=== PATIENT | male | born 1965 | race Two or more races ===

== ENCOUNTER 2017-04-09 14:54 | Emergency (ER) | payer BC, OTHER ==
[~2017-04-09] VITALS: Ht 172.7 cm; Wt 79.0 kg
[2017-04-09] MEDS ORDERED: SODIUM CHLORIDE 0.9% 1,000 ML IV ONE (15:21)
[2017-04-09] MEDS ORDERED: ASPIRIN 81 MG TABLET CHEW PO ONE (15:30)
[2017-04-09] MEDS ORDERED: NITROGLYCERIN SINGLE TAB 0.4 MG SL PRN (15:30)
[2017-04-09] MEDS ORDERED: SODIUM CHLORIDE FLUSH 10ML SYR IVF ONE (15:30)
[2017-04-09 16:04] LABS: HEMATOCRIT 46.2 % (39.2-51.8); HEMOGLOBIN 15.7 g/dL (13.7-18.0); WHITE BLOOD COUNT 7.1 x10^3/uL (3.4-10)
[2017-04-09 16:18] LABS: BLOOD UREA NITROGEN 20 mg/dL (7-18)
[2017-04-09 16:23] LABS: IS PT STATUS REG ER OR PRE ER? YES
[2017-04-09 17:35] VITALS: BP 136/96
== END 2017-04-09 17:36 | disposition home or self-care (01) ==
LOC: ED 17:04
DX: R07.2 Precordial pain (principal); I10 Essential (primary) hypertension; Z79.82 Long term (current) use of aspirin
CPT/HCPCS: 36415; 71010; 80048; 82040; 84484; 85025; 93005; 99285

== ENCOUNTER → 2017-04-14 | Outpatient (CLI) | payer OTHER | END | disposition home or self-care (01) | LOC: CFH 08:34 | PROVIDERS: ATTEND Internal Medicine Cardiovascular Disease | DX: I08.1 Rheumatic disorders of both mitral and tricuspid valves (principal); I10 Essential (primary) hypertension | CPT/HCPCS: 93306 ==

== ENCOUNTER → 2017-04-15 | Outpatient (CLI) | payer OTHER | END | disposition home or self-care (01) | LOC: RAD 13:12 | PROVIDERS: ATTEND Internal Medicine Cardiovascular Disease | DX: I10 Essential (primary) hypertension (principal); R07.89 Other chest pain | CPT/HCPCS: 78452; 93017; A9502 ==

== ENCOUNTER 2020-04-26 22:31 | Emergency (ER) | payer OTHER ==
[~2020-04-26] VITALS: Ht 170.2 cm; Wt 75.8 kg
[2020-04-26] MEDS ORDERED: LIDOCAINE-MPF 1%, 5ML ONE (22:43)
[2020-04-26] MEDS ORDERED: ONDANSETRON 2MG/ML, 2ML ONE (22:49)
[2020-04-26] MEDS ORDERED: MORPHINE SULFATE 4 MG/ML, 1ML ONE ×2 (22:50→23:14)
[2020-04-26] MEDS ORDERED: DIPH,PERTUSS(ACELL),TET VAC/PF 0.5 ML IM-VACC ONE ×2 (22:50→23:00)
[2020-04-26] MEDS ORDERED: ONDANSETRON 2MG/ML, 2ML IVPush ONE (23:00)
[2020-04-26] MEDS ORDERED: CEFAZOLIN PMX 1GM/50ML 50 ML IVPB ONE (23:00)
--- NOTE | 2020-04-26 23:00 | NUR ---
pt walked back to room, on o2 sat monitor. towel wrapped around hand. bleeding controlled.
--- NOTE | 2020-04-26 23:00 | NUR ---
pt a&ox4, no distress at this time. MD to bedside to eval pt. piv started to right hand 18g, x1 attempt, taped and secured, flushed, no swelling, redness. no pain per pt. pain meds given, and dpt immunization updated.
[2020-04-26] MEDS: MORPHINE SULFATE 4 MG/ML, 1ML IV PRN ×2 (23:02→23:19)
[2020-04-26] MEDS ORDERED: CEFAZOLIN PMX 1GM/50ML 50 ML ONE (23:14)
--- NOTE | 2020-04-26 23:20 | NUR ---
first pain med dose did not take the pain away. pt on cr monitor. airway intact, good aeration and oxygenation.
--- NOTE | 2020-04-26 23:20 | NUR ---
2nd dose of pain meds given iv, pt tolerating well. family at bedside. antibiotics started iv, tetanus shot given, and all documented.
--- NOTE | 2020-04-26 23:21 | NUR ---
1 liter NS started for lower BP, 98/57, per MD verbal order. to be written.
[2020-04-26] MEDS ORDERED: SODIUM CHLORIDE FLUSH 10ML SYR IVF ONE (23:30)
[2020-04-26] MEDS ORDERED: SODIUM CHLORIDE 0.9% 1,000ML IVBOLUS ONE (23:30)
--- NOTE | 2020-04-26 23:33 | NUR ---
2nd piv to start on affected L hand.
[2020-04-27] MEDS ORDERED: LIDOCAINE/PF 0.5% ,50ML INFIL ONE
--- NOTE | 2020-04-27 01:10 | NUR ---
and tech to bedside. left hand lac irrigated with 2 Liter of NS, after lido block placed via PIV. blood pressure cuff x2 placed left arm for block. good pulse noted, and blanket folder <2 sec. pt awake and alert and no complaint of pain at this time. cr monitor on.
--- NOTE | 2020-04-27 01:38 | NUR ---
left hand lac sutured by PA, tolerated well, no pain, no more bleeding, wound cleansed with NS and bandaged and splint placed for comfort. pt tolerated well. call light at bedside and remains on cr monitor, and siderails up x2
--- NOTE | 2020-04-27 02:07 | NUR ---
First contact for dispo. Pt and family given rx, instruct and extra bandaids. Pt and family verbalize understanding of dc, when to return, f/u. VSS, IV dc cath intact.
[2020-04-27 02:08] VITALS: BP 135/74
[2020-04-27] MEDS ORDERED: ONDANSETRON ODT 4 MG ONE (02:17)
== END 2020-04-27 02:11 | disposition home or self-care (01) ==
LOC: ED 04-27 02:00
DX: S61.012A Laceration without foreign body of left thumb without damage to nail, initial encounter (principal); S61.211A Laceration without foreign body of left index finger without damage to nail, initial encounter; S61.213A Laceration without foreign body of left middle finger without damage to nail, initial encounter; S61.215A Laceration without foreign body of left ring finger without damage to nail, initial encounter; S61.217A Laceration without foreign body of left little finger without damage to nail, initial encounter; M79.642 Pain in left hand; I10 Essential (primary) hypertension; X58.XXXA Exposure to other specified factors, initial encounter; Y93.89 Activity, other specified; Y92.009 Unspecified place in unspecified non-institutional (private) residence as the place of occurrence of the external cause; Y99.8 Other external cause status
CPT/HCPCS: 12044; 73130; 90471; 90715; 96365; 96375; 99285; J0690; J2001; J2270; J2405; J7030

== ENCOUNTER → 2020-04-29 | Outpatient (CLI) | payer OTHER | END | disposition home or self-care (01) | LOC: STAR 08:00 → EDSTATUS 05-07 15:30 | PROVIDERS: ATTEND Orthopaedic Surgery | DX: Z20.828 Contact with and (suspected) exposure to other viral communicable diseases (principal); S61.412A Laceration without foreign body of left hand, initial encounter; X58.XXXA Exposure to other specified factors, initial encounter; Y92.89 Other specified places as the place of occurrence of the external cause; Y93.89 Activity, other specified; Y99.8 Other external cause status | CPT/HCPCS: 87635 ==

== ENCOUNTER 2020-05-07 14:48 | Day surgery (SDC) | payer OTHER ==
[~2020-05-07] VITALS: Ht 172.7 cm; Wt 72.0 kg
[2020-05-07] MEDS ORDERED: BUPIVACAINE/PF 0.5% ONE ×2 (15:04→16:03)
[2020-05-07] MEDS ORDERED: AMLO5TAB4 PO (15:10)
[2020-05-07] MEDS ORDERED: ACETAMINOPHEN 500 MG TABLET ONE (15:17)
[2020-05-07] MEDS ORDERED: CHLORHEXIDINE 15 ML UDC MM ONE (15:30)
[2020-05-07] MEDS ORDERED: LACTATED RINGERS 1,000 ML IV SCH (15:30)
[2020-05-07] MEDS ORDERED: ACETAMINOPHEN 500 MG TABLET PO ONE (15:30)
[2020-05-07 15:43] VITALS: BP 155/100
[2020-05-07] MEDS ORDERED: FENTANYL PF 250 MCG/5ML ONE (15:58)
[2020-05-07] MEDS ORDERED: OXYcodone 5 MG/5 ML ORAL.SOL UDC PO PRN ×2 (16:00→18:00)
[2020-05-07] MEDS ORDERED: hydrALAzine 20 MG/ML, 1ML IV PRN ×2 (16:00→18:00)
[2020-05-07] MEDS ORDERED: PROMETHAZINE 25 MG/ML, 1ML IVPush PRN ×2 (16:00→18:00)
[2020-05-07] MEDS ORDERED: LABETALOL 5MG/ML, 20ML IV PRN ×2 (16:00→18:00)
[2020-05-07] MEDS ORDERED: ONDANSETRON 2MG/ML, 2ML IVPush PRN ×2 (16:00→18:00)
[2020-05-07] MEDS ORDERED: EPHEDRINE 50 MG/ML, 1ML IVPush PRN ×2 (16:00→18:00)
[2020-05-07] MEDS ORDERED: MIDAZOLAM 1 MG/ML, 2ML ONE (16:03)
[2020-05-07] MEDS ORDERED: EPINEPHRINE 1 MG/ML, 1ML ONE (16:03)
[2020-05-07] MEDS ORDERED: DEXAMETHASONE 4 MG/ML, 1ML ONE (16:11)
[2020-05-07] MEDS ORDERED: PROPOFOL 10 MG/ML, 20ML ONE (16:11)
[2020-05-07] MEDS ORDERED: ONDANSETRON 2MG/ML, 2ML ONE (16:11)
[2020-05-07] MEDS ORDERED: CEFAZOLIN 1,000 MG ONE (16:11)
[2020-05-07] MEDS ORDERED: HALOPERIDOL 5 MG/ML IV PRN (18:00)
[2020-05-07] MEDS ORDERED: EPHEDRINE 50 MG/ML, 1ML IM PRN (18:00)
[2020-05-07] MEDS ORDERED: HYDROmorphone 1 MG/ML, 1ML INJ IVPush PRN (18:00)
[2020-05-07] MEDS ORDERED: FENTANYL PF 100 MCG/2ML IV PRN (18:00)
[2020-05-07] MEDS ORDERED: METHOCARBAMOL 1,000 MG in DEXTROSE 5% 100 ML IV PRN (18:00)
[2020-05-07] MEDS ORDERED: MEPERIDINE/PF 25MG/0.5ML IVPush PRN (18:00)
[2020-05-07] MEDS ORDERED: LORazepam 2 MG/ML, 1ML IVPush PRN (18:00)
[2020-05-07] MEDS ORDERED: ACETAMINOPHEN 325 MG TABLET PO PRN (18:00)
[2020-05-07] MEDS ORDERED: FENTANYL PF 100 MCG/2ML ONE ×2 (18:38→19:00)
[2020-05-07] MEDS: FENTANYL PF 100 MCG/2ML IV PRN ×6 (18:45→19:20)
[2020-05-07] MEDS ORDERED: OXYcodone 5 MG/5 ML ORAL.SOL UDC ONE (19:00)
[2020-05-07] MEDS ORDERED: HYDROmorphone 1 MG/ML, 1ML INJ ONE (19:24)
[2020-05-07] MEDS: HYDROmorphone 1 MG/ML, 1ML INJ IVPush PRN ×2 (19:27→19:36)
== END 2020-05-07 20:55 | disposition home or self-care (01) ==
LOC: OR 14:48
PROVIDERS: ATTEND Orthopaedic Surgery
DX: M79.642 Pain in left hand (principal); S61.211D Laceration without foreign body of left index finger without damage to nail, subsequent encounter; S61.213D Laceration without foreign body of left middle finger without damage to nail, subsequent encounter; S61.215D Laceration without foreign body of left ring finger without damage to nail, subsequent encounter; S61.217D Laceration without foreign body of left little finger without damage to nail, subsequent encounter; X58.XXXD Exposure to other specified factors, subsequent encounter; I10 Essential (primary) hypertension; Z79.899 Other long term (current) drug therapy; Z72.89 Other problems related to lifestyle; Z20.828 Contact with and (suspected) exposure to other viral communicable diseases; Z98.890 Other specified postprocedural states
CPT/HCPCS: 26356; 64831; 64832; 64836; 64837; 87635; J0171; J0690; J1100; J1170; J2250; J2405; J2704; J3010; J7120